=== PATIENT | female | born 1955 | race Caucasian/White ===

== ENCOUNTER 2017-03-21 23:08 | Emergency (ER) | payer BC ==
[~2017-03-21] VITALS: Ht 165.1 cm; Wt 80.3 kg
--- NOTE | 2017-03-21 23:31 | PHYS DOC ---
Adult General Chief Complaint Chief Complaint: HYPERTENSION HPI HPI Patient is a 61 year old female who presents with complaints of some mild headache similar to previous, malaise, and her blood pressure. Patient states that earlier she also had some changes in the edition of in her left eye, when she saw a bright light and what she described as pixelation, no floaters, did not lose vision or experience pain, the episode was brief and resolved. Patient denied any pain anywhere, she also denies any focal weakness or numbness. Patient is compliant with her blood pressure medication, no recent changes to her medication regimen other than allergy pills. No fevers, no chills, no rashes , no trauma. Review of Systems Review of Systems Constitutional: Denies fever or chills [] Eyes: Denies change in visual acuity in the ED, redness, or eye pain [] HENT: Denies nasal congestion or sore throat [] Respiratory: Denies cough or shortness of breath [] Cardiovascular: No chest pain GI: Denies abdominal pain, Musculoskeletal: Denies back pain or joint pain [] Integument: Denies rash or skin lesions [] Neurologic: Denies focal weakness or sensory changes . Yes to headache, mild Other systems reviewed and found to be negative unless otherwise stated Current Medications Current Medications Current Medications Medications (Trade) Dose Ordered Sig/Bertin Start Time Stop Time Status Last Admin Dose Admin Sodium Chloride 1,000 ml @ 1,000 mls/hr 1X ONCE 03/21/17 23:45 03/22/17 00:44 03/21/17 23:44 1,000 MLS/HR Allergies Allergies Allergies Coded Allergies Type Severity Reaction Last Updated Verified Penicillins Allergy Intermediate 03/21/17 Yes Sulfa (Sulfonamide Antibiotics) Allergy Intermediate 03/21/17 Yes Physical Exam Physical Exam Constitutional: Well developed, well nourished, no acute distress, non-toxic appearance. [] HENT: Normocephalic, atraumatic, bilateral external ears normal, oropharynx dry , no oral exudates, nose normal. [] Eyes: PERRLA, EOMI, conjunctiva normal, no discharge. Normal funduscopic exam Neck: Normal range of motion, no tenderness, supple, no stridor. No LAD, no meningeal signs Cardiovascular:Heart rate regular rhythm, no murmur, equal pulses, normal perfusion Lungs & Thorax: Bilateral breath sounds clear to auscultation [] Abdomen: Bowel sounds normal, soft, no tenderness, no masses, no pulsatile masses. [] Skin: Warm, dry, no erythema, no rash. [] Back: Normal range of motion Extremities: No tenderness, no cyanosis, no DVT, ROM intact, no edema. [] Neurologic: Alert and oriented X 3, normal motor function, ambulated in the ED with normal gait and without assistance, no focal deficits noted. [] Psychologic: Affect normal, judgement normal, mood normal. [] Current Patient Data Vital Signs Vital Signs Date Time Temp Pulse Resp B/P (MAP) Pulse Ox O2 Delivery O2 Flow Rate FiO2 03/21/17 23:51 92 14 159/68 (98) Room Air 99.0 03/21/17 23:15 97.8 98 97.8 Lab Values Laboratory Tests Test 03/21/17 23:41 White Blood Count 10.8 x10^3/uL (4.0-11.0) Red Blood Count 4.72 x10^6/uL (3.50-5.40) Hemoglobin 13.0 g/dL (12.0-15.5) Hematocrit 40.2 % (36.0-47.0) Mean Corpuscular Volume 85 fL (79-100) Mean Corpuscular Hemoglobin 28 pg (25-35) Mean Corpuscular Hemoglobin Concent 33 g/dL (31-37) Red Cell Distribution Width 14.5 % (11.5-14.5) Platelet Count 301 x10^3/uL (140-400) Neutrophils (%) (Auto) 60 % (31-73) Lymphocytes (%) (Auto) 28 % (24-48) Monocytes (%) (Auto) 7 % (0-9) Eosinophils (%) (Auto) 5 % (0-3) H Basophils (%) (Auto) 1 % (0-3) Neutrophils # (Auto) 6.5 x10^3uL (1.8-7.7) Lymphocytes # (Auto) 3.0 x10^3/uL (1.0-4.8) Monocytes # (Auto) 0.7 x10^3/uL (0.0-1.1) Eosinophils # (Auto) 0.5 x10^3/uL (0.0-0.7) Basophils # (Auto) 0.1 x10^3/uL (0.0-0.2) Sodium Level 142 mmol/L (136-145) Potassium Level 3.5 mmol/L (3.5-5.1) Chloride Level 105 mmol/L (98-107) Carbon Dioxide Level 30 mmol/L (21-32) Anion Gap 7 (6-14) Blood Urea Nitrogen 18 mg/dL (7-20) Creatinine 0.7 mg/dL (0.6-1.0) Estimated GFR (Cockcroft-Gault) 85.6 Glucose Level 125 mg/dL (70-99) H Calcium Level 9.5 mg/dL (8.5-10.1) Troponin I Quantitative < 0.017 ng/mL (0.000-0.055) Laboratory Tests 03/21/17 23:41 Laboratory Tests 03/21/17 23:41 EKG EKG 2339 93, SR, no stemi[] Radiology/Procedures Radiology/Procedures CT no acute findings[] Course & Med Decision Making Course & Med Decision Making Pertinent Labs and Imaging studies reviewed. (See chart for details) 0026 patient in no distress, sleeping comfortably, systolic blood pressure now 151. Patient states she has no complaints at this time. Patient agrees to follow -up as directed, I recommended the patient follow-up with an scenic artist she says she will do so. [] Dragon Disclaimer Dragon Disclaimer This electronic medical record was generated, in whole or in part, using a voice recognition dictation system. Departure Departure Impression: Primary Impression: Hypertension Additional Impressions: Malaise Vision disturbance Dehydration Disposition: 01 HOME, SELF-CARE Condition: IMPROVED Patient Instructions: Dehydration, Adult, Latd-uv-Aerh, Hypertension, Easy-to- Read Additional Instructions: Please follow-up with your PCP in 2 days and your scenic artist for a full eye evaluation. If your symptoms return or worsen please go to the nearest emergency department or see your doctor sooner. This discussed with your PCP and scenic artist your ED visit today, please have your PCP recheck your blood pressure and discuss possible need for adjustment of her blood pressure medication Problem Qualifiers Akosua POSADA MD Mar 21, 2017 23:31
[2017-03-21] MEDS ORDERED: IV NORMAL SALINE 1000ML BAG 1,000 ML IV ONE (23:45)
[2017-03-21 23:51] LABS: BASO # 0.1 x10^3/uL (0.0-0.2); BASO % 1 % (0-3); EOS % 5 % (0-3); HEMATOCRIT 40.2 % (36.0-47.0); LYMPH % 28 % (24-48); MEAN CORPUSCULAR HEMOGLOBIN 28 pg (25-35); MEAN CORPUSCULAR HGB CONC 33 g/dL (31-37); MEAN CORPUSCULAR VOLUME 85 fL (79-100); MONO % 7 % (0-9); NEUT % 60 % (31-73); PLATELET COUNT 301 x10^3/uL (140-400); RED BLOOD COUNT 4.72 x10^6/uL (3.50-5.40); RED CELL DISTRIBUTION WIDTH 14.5 % (11.5-14.5); WHITE BLOOD COUNT 10.8 x10^3/uL (4.0-11.0)
[2017-03-22 00:01] LABS: CALCIUM 9.5 mg/dL (8.5-10.1); CREATININE 0.7 mg/dL (0.6-1.0); GFR 85.6; POTASSIUM 3.5 mmol/L (3.5-5.1)
--- NOTE | 2017-03-22 00:11 | RAD ---
CT head without contrast: Reason for examination: Visual changes. History of hypertension. Axial images were obtained through the brain. No contrast was administered. Exposure: One or more of the following individualized dose reduction techniques were utilized for this examination: 1. Automated exposure control 2. Adjustment of the mA and/or kV according to patient size 3. Use of iterative reconstruction technique. Ventricular systems are symmetric and not abnormally dilated. No midline shift is seen. There is no evidence of intracranial hemorrhage, infarct, mass or edema. No abnormalities are seen at the orbits. The paranasal sinuses and mastoid air cells are clear. No acute skull abnormality is seen. IMPRESSION: No acute intracranial abnormality evident. Electronically signed by: Jelly Crook MD (03/22/2017 12:08 AM) [facility]
[2017-03-22 00:14] VITALS: BP 151/69
--- NOTE | 2017-03-22 10:10 | EKG ---
[facility] [address] [place] [address] Test Date: 2017-03-21 Test Time: 23:35:06 Pat Name: JESSENIA COHEN Department: Room: Gender: F Marketing Rep: : 1955 Requested By: Akosua POSADA Order Number: [id number] Reading MD: Measurements Intervals [place] Rate: 93 P: 43 [place]: 180 QRS: -3 QRSD: 82 T: 59 QT: 342 QTc: 428 Interpretive Statements SINUS RHYTHM LEFTWARD AXIS RI6.01 Unconfirmed report No previous ECG available for comparison
== END 2017-03-22 00:40 | disposition home or self-care (01) ==
LOC: ER 23:08
DX: I10 Essential (primary) hypertension (principal); R53.81 Other malaise; H53.9 Unspecified visual disturbance; E86.0 Dehydration; Z88.0 Allergy status to penicillin; Z88.2 Allergy status to sulfonamides
CPT/HCPCS: 36415; 70450; 80048; 84484; 85025; 93005; 96360; 99285; J7030

== ENCOUNTER → 2017-08-19 | Outpatient (CLI) | payer OTHER | END | disposition home or self-care (01) | LOC: KCIC 15:39 | DX: R05 Cough (principal); Z77.22 Contact with and (suspected) exposure to environmental tobacco smoke (acute) (chronic) | CPT/HCPCS: 71046 ==

== ENCOUNTER → 2019-01-26 | Outpatient (CLI) | payer BC, OTHER ==
--- NOTE | 2019-01-26 11:52 | RAD ---
EXAM: Chest, 2 views. HISTORY: Cough. COMPARISON: 08/19/2017 FINDINGS: 2 views of the chest are obtained. There is no infiltrate, pleural effusion or pneumothorax. There is lingular and left lower lobe atelectasis or scarring. The heart is normal in size. IMPRESSION: No acute pulmonary finding. Electronically signed by: Destinee Nam MD (01/26/2019 11:49 AM) [facility]
--- NOTE | 2019-01-26 12:03 | RAD ---
EXAM: Paranasal sinuses, 3 views. HISTORY: Ethmoid sinusitis. COMPARISON: CT dated 03/21/2017. FINDINGS: 3 views of the paranasal sinuses are obtained. There is no sinus opacification or air-fluid level. There is minimal rightward nasal septal deviation. IMPRESSION: No convincing acute or chronic sinusitis. Electronically signed by: Destinee Nam MD (01/26/2019 12:00 PM) [place] [id number]
--- NOTE | 2019-01-26 12:05 | RAD ---
EXAM: Bilateral knees, 3 views. HISTORY: Pain. COMPARISON: None. FINDINGS: 3 views of both knees are obtained. There is no fracture, dislocation or subluxation. There is slight enthesopathy along the superior left greater than right patella. No joint effusion is seen. There are tiny corticated ossicles adjacent to the bilateral medial tibial spines, likely due to intra-articular osteophytes or tiny joint loose bodies. IMPRESSION: 1. Tiny corticated ossicles adjacent to the medial tibial spines, likely due to intra-articular osteophytes or tiny joint loose bodies. 2. No acute osseous finding. Electronically signed by: Destinee Nam MD (01/26/2019 12:02 PM) [facility]
== END | disposition home or self-care (01) ==
LOC: RAD 10:50
PROVIDERS: ATTEND Internal Medicine
DX: J34.2 Deviated nasal septum (principal); M76.892 Other specified enthesopathies of left lower limb, excluding foot; M76.891 Other specified enthesopathies of right lower limb, excluding foot; J32.2 Chronic ethmoidal sinusitis
CPT/HCPCS: 70220; 71046; 73562

== ENCOUNTER → 2020-06-07 | Outpatient (CLI) | payer BC ==
--- NOTE | 2020-06-07 17:47 | CARD ---
MR#: [id number] Date of Study: 06/07/2020 Ordering Physician: ОЛЬГА CORREA, Referring Physician: ОЛЬГА CORREA Tech: Poly Melchor [facility] APPROVED REPORT EXAM: Two-dimensional and M-mode echocardiogram with Doppler and color Doppler. Other Information Quality : AverageHR: 58bpm Rhythm : NSR INDICATION Chest Pain RISK FACTORS Hypertension Obesity Hyperlipidemia 2D DIMENSIONS RVDd2.4 (2.9-3.5cm)Left Atrium(2D)3.9 (1.6-4.0cm) IVSd1.2 (0.7-1.1cm)Aortic Root(2D)3.0 (2.0-3.7cm) LVDd4.3 (3.9-5.9cm)LVOT Diameter2.0 (1.8-2.4cm) PWd1.0 (0.7-1.1cm)LVDs2.6 (2.5-4.0cm) FS (%) 40.3 %SV60.7 ml LVEF(%)71.3 (>50%) Aortic Valve AoV Peak Hilario.124.8cm/sAoV VTI31.9cm AO Peak GR.6.2mmHgLVOT Peak Hilario.107.7cm/s AO Mean GR.3mmHgAVA (VMAX)2.77cm2 Mitral Valve MV E Zefyopoj04.5cm/sMV DECEL [id number] MV A Ofqlydat89.2cm/sE/A Ratio1.2 MV A Nlnnciog341rc Pulmonary Valve PV Peak Hxymkzfw32.8cm/s Tricuspid Valve TR P. Lijsxzro124uj/sTR Peak Gr.23mmHg Pulmonary Vein S1 Epbxtsxc35.6cm/sD2 Kjgkzzxz18.9cm/s PVa hzlvsmgb127ctda LEFT VENTRICLE The left ventricle is normal size. There is normal left ventricular wall thickness. The left ventricu lar systolic function is normal and the ejection fraction is within normal range. Estimated ejection fraction 55-60%. There is normal LV segmental wall motion. The left ventricular diastolic function a nd filling is normal for age. RIGHT VENTRICLE The right ventricle is normal size. There is normal right ventricular wall thickness. The right ventr icular systolic function is normal. ATRIA The left atrium size is normal. The right atrium size is normal. The interatrial septum is intact wit h no evidence for an atrial septal defect or patent foramen ovale as noted on 2-D or Doppler imaging. AORTIC VALVE The aortic valve is normal in structure and function. Doppler and Color Flow revealed no significant aortic regurgitation. There is no significant aortic valvular stenosis. MITRAL VALVE The mitral valve is normal in structure and function. There is no evidence of mitral valve prolapse. There is no mitral valve stenosis. Doppler and Color-flow revealed mild mitral regurgitation. TRICUSPID VALVE The tricuspid valve is normal in structure and function. Doppler and Color Flow revealed trace to mil d tricuspid regurgitation. Estimated PAP 27 mmHg. PULMONIC VALVE The pulmonary valve is normal in structure and function. Doppler and Color Flow revealed no pulmonic valvular regurgitation. GREAT VESSELS The aortic root is normal in size. The ascending aorta is normal in size. The pulmonary artery is nor mal. The IVC is normal in size and collapses >50% with inspiration. PERICARDIAL EFFUSION There is no pleural effusion. There is no evidence of significant pericardial effusion. Critical Notification Critical Value: No <Conclusion> The left ventricle is normal size. The left ventricular systolic function is normal and the ejection fraction is within normal range. Estimated ejection fraction 55-60%. Doppler and Color Flow revealed no significant aortic regurgitation. There is no significant aortic valvular stenosis. Doppler and Color-flow revealed mild mitral regurgitation. Doppler and Color Flow revealed trace to mild tricuspid regurgitation. Estimated PAP 27 mmHg. Signed by : Zaheer Abdi MD Electronically Approved : 06/07/2020 17:47:37
== END ==
LOC: ECHO 09:32
PROVIDERS: ATTEND Internal Medicine Cardiovascular Disease
DX: I08.1 Rheumatic disorders of both mitral and tricuspid valves (principal); R07.9 Chest pain, unspecified
CPT/HCPCS: 93306

== ENCOUNTER → 2020-06-08 | Outpatient (CLI) | payer BC ==
[~2020-06-08] MED LIST: REGADENOSON 0.4 MG/5 ML DISP.SYRIN. IV ONE
--- NOTE | 2020-06-08 15:07 | RAD ---
MR#: [id number] Date of Study: 06/08/2020 Ordering Physician: ОЛЬГА CORREA Referring Physician: GERRY ALSTON Tech: RT Yosi Zazueta) (N) APPROVED REPORT Test Type: Pharmacological Stress Nurse/Tech: Gulshan Hopkins RN Test Indications: Chest Pain Cardiac History: HTN, See EMR. Medications: See EMR. Medical History: See EMR. Resting ECG: SR Resting Heart Rate: 64 bpm Resting Blood Pressure: 177/79mmHg Pretest Chest Pain: No chest pain Nurse/Tech Notes Lungs CTA, Heart tones regular. Consent: The procedure was explained to the patient in lay terms. Informed consent was witnessed. Tate eout was entered into [employer]. History and Stress Test performed by RT Yosi Zazueta) (N) Pharm. Details Pharmacologic stress testing was performed using 0.4mg per 5ml of regadenoson given intravenously ove r 7-10 seconds. Stress Symptoms Dyspnea. POST EXERCISE Reason for Termination: Infusion complete Max HR: 114 bpm Max Blood Pressure: 166/69mmHg Blood Pressure response to exercise: Normal blood pressure response during stress. Heart Rate response to exercise: WNL Chest Pain: No. Arrhythmia: No. INTERPRETATION Stress EKG Conclusion: The resting EKG shows a sinus rhythm and slight nonspecific T wave changes. The stress EKG shows no significant changes from baseline. No EKG evidence of stress-induced ischemia. Imaging Protocol IMAGE PROTOCOL: Rest Tc-99m/stress Tc-99m 1 day Rest: Stress: Viability: Radiopharm.Tc99m GpjwaujuuJq43d Sestamibi Dose9.8mCi 33mCi Duration 15min. 10min. Img Date 06/08/2020 06/08/2020 Inj-Img Yapf44gpd. 60min. Rest Admin Site:IV - Right HandAdministrator:CANDY Campbell, ARRT (R)(N) Stress Admin Site: IV - Right HandAdministrator: CANDY Campbell, ARRT (R)(N) STRESS DATA End Diast. Vol.93.0mlAv. Heart Rate72.0bpm End Syst. Vol.18.0mlCO Index BSA0.0L/min Myocardial Jcnt925.0gEject. Fkhgypjb10.0% Stress Rates Pk. Fill Rate3.24EDV/secLVtime Pk. Fill 124.00msec Pk. Empty Rate3.75ESV/secLVtime Pk. Rtvos347.22msec 1/3 Pk. Fill1.93EDV/sec Stress Scores Regional WT0.00Summed WT1.00 Regional WM0.00Summed WM1.00 LV Perfusion The stress scans show minimal apical thinning. The rest scans showed minimal apical thinning. Nuclear medicine testing shows no significant reversible ischemia. There is minimal fixed apical thinning present. Wall Motion LV systolic function is severely decreased. Ejection fraction is 23%. There a significant anterior/ septal/apical wall motion abnormality with additional mild global hypokinesis. LV Perf. Quant 17 Seg. SSS0.00 17 Seg. SRS0.00 17 Seg. SDS0.00 Stress Defect Extent (% LAD)0.00Rest Defect Extent (% LAD)0.00Rev. Defect Extent (% LAD)0.00 Stress Defect Extent (% LCX) 0.00Rest Defect Extent (% LCX)0.00Rev. Defect Extent (% LCX)0.00 Stress Defect Extent (% RCA)0.00Rest Defect Extent (% RCA)0.00Rev. Defect Extent (% RCA)0.00 Stress Defect Extent (% WIL)0.00Rest Defect Extent (% WIL)0.00Rev. Defect Extent (% WIL)0.00 Conclusion 1. No EKG evidence of stress-induced ischemia. 2. Nuclear imaging shows no significant reversible ischemia. 3. Nuclear imaging shows a minimal apical fixed defect. 4. Left ventricular systolic function is severely decreased with ejection fraction of 23%. Signed by : Zaheer Abdi MD Electronically Approved : 06/08/2020 15:07:14
== END ==
LOC: NM 08:21
PROVIDERS: ATTEND Internal Medicine Cardiovascular Disease
DX: I10 Essential (primary) hypertension (principal); R07.9 Chest pain, unspecified
CPT/HCPCS: 78452; 93017; A9500; J2785